=== PATIENT | female | born 1980 | race African-American/Black ===

== ENCOUNTER 2020-02-24 22:22 | Emergency (ER) | payer OTHER ==
[~2020-02-24] VITALS: Ht 160 cm; Wt 102.1 kg
[2020-02-24] MEDS ORDERED: HYDROCHLOROTH12.5 M1 PO (22:30)
[2020-02-24] MEDS ORDERED: QNASL CHILDREN6.8 GM INH (22:32)
[2020-02-24] MEDS ORDERED: AMOXICILLIN 50500 M1 PO (23:40)
[2020-02-24] MEDS ORDERED: ULTRAM 50MG TAB50 MG PO (23:40)
[2020-02-25 00:32] VITALS: BP 205/98
== END 2020-02-25 00:33 | disposition home or self-care (01) ==
LOC: ER 22:22
DX: K08.89 Other specified disorders of teeth and supporting structures (principal); Z79.899 Other long term (current) drug therapy